=== PATIENT | male | born 1985 | race Caucasian/White ===

== ENCOUNTER 2018-04-19 11:24 | Emergency (ER) | payer MEDICAID ==
[2018-04-19] MEDS ORDERED: Diphtheria,Pertussis(Acell),Tetanus Vaccine 0.5 ML Syringe IM ONE (11:31)
[2018-04-19] MEDS ORDERED: Sodium Chloride 0.9% 1,000 ML IV ONE (11:31)
[2018-04-19] MEDS ORDERED: Ondansetron 4 MG/2 ML SDV IVPUSH ONE (11:31)
--- NOTE | 2018-04-19 11:41 | EDM.PDOC ---
ED HPI GENERAL MEDICAL PROBLEM - General Chief Complaint: Trauma Stated Complaint: FALL Time Seen by Provider: 04/19/18 11:33 Source of Information: Reports: Patient History Limitations: Reports: No Limitations - History of Present Illness INITIAL COMMENTS - FREE TEXT/NARRATIVE: HISTORY AND PHYSICAL: Trauma alert was called upon patient arrival at 1126: Dr Ferrer was involved in the case History of present illness: Patient is a 32-year-old male who presents to the emergency room by private vehicle with concerns of a head laceration and generalized body pain. He states last evening he was drinking alcohol at a neighbor's house and remembers walking up the stairs to his apartment. He states he does not recall any events after that. He woke up in the middle of the night and had noticed a moderate amount of blood on his pillow and had a large hematoma to the right side of his scalp. He states he got up and showered. This morning he proceeded to the emergency room as he now has head, neck and thoracic back pain. He is ambulatory into the emergency room. Does have pain to the left knee, left index finger and left foot. A trauma alert was called due to unknown mechanism of injury. Patient is alert and oriented. Review of systems: As per history of present illness and below otherwise all systems reviewed and negative. Past medical history: As per history of present illness and as reviewed below otherwise noncontributory. Surgical history: As per history of present illness and as reviewed below otherwise noncontributory. Social history: No reported history of drug or alcohol abuse. Family history: As per history of present illness and as reviewed below otherwise noncontributory. Physical exam: General: Well-developed and well-nourished 32-year-old male. Alert and oriented. Nontoxic appearing and in no acute distress. HEENT: The hair along the right side of his scalp has dried blood (staff is currently cleaning area to view the area), soft tissue swelling and tenderness to the right side of scalp, behind right ear. Otherwise normocephalic, pupils equal and reactive bilaterally, negative for conjunctival pallor or scleral icterus, mucous membranes moist, throat clear, teeth and tongue intact, neck supple, nontender, trachea midline. No drooling or trismus noted. No meningeal signs Lungs: Clear to auscultation, breath sounds equal bilaterally, chest nontender. Heart: S1S2, regular rate and rhythm without overt murmur Abdomen: Soft, nondistended, nontender. Negative for masses or hepatosplenomegaly. Negative for costovertebral tenderness. Pelvis: Stable nontender. Genitourinary: Deferred. Rectal: Deferred. Skin: Abrasions noted to bilateral knees, soft tissue swelling noted to the left index finger. Please see below for head laceration description. Extremities: Moves all extremities per self. Does have pain with palpation over the anterior surface of left knee and top of left foot. Pain with weightbearing of the left knee and left foot. Pain with flexion and extension of left index finger. Denies any numbness or tingling to his distal extremities. Strong pedal and radial pulses bilaterally. Capillary refill less than 3 seconds. He is negative for cords or calf pain. Neurovascular unremarkable. C-spine/Back: No pinpoint vertebral tenderness to the cervical spine. Mild tenderness to the upper/mid thoracic spine with palpation. No crepitus, step- offs or obvious deformities noted. No urinary or fecal incontinence. Denies any numbness or tingling to his distal extremities. Patient is ambulatory into the emergency room and hasn't even and steady gait. Neuro: Awake, alert, oriented. Cranial nerves II through XII unremarkable. Cerebellum unremarkable. Motor and sensory unremarkable throughout. Exam nonfocal. Notes: No acute intracranial abnormality. There is focal scalp swelling and hematoma adjacent to the right parietal calvarium, no fracture. CT of the cervical spine is within normal limits. C-collar was removed. CT of the chest, abdomen and pelvis are normal. X-ray of the left knee and foot show no evidence of fracture or dislocation. Finger xray shows nondisplaced volar plate avulsion fracture at the base of the second middle phalanx. Fiberglass splint was applied to the end of the fingertips over the palmar surface beyond the wrist. She secured with an Cale wrap. Due to the moderate amount of dried blood in the patient's hair over the lacerated area, staff having difficulty cleaning. He declined the need to anesthetize the area. Chlorahexedine, warm water and commerical shower cap were used to cleanse the area. 5 cm x 2.5 cm "T" shaped laceration to left side of scalp. There appears to be an avulsed area of skin in the center of the T, approx 1.25cm in width. 1% lidocaine was used to anesthetize the area in order to cleanse the dried blood. Chlorahexadine and wound wash was used to clean and irrigate the area. Sterile and customary procedures were used. In total #6 gagandeep were placed. 2 gagandeep to the left side of the T, 2 gagandeep to the right side of the T, and 2 at the base. 5-0 nylon was used to approximate the avulsed area at the center of the "T "- #3 sutures. Patient tolerated procedure well. Wound care was reviewed and signs and symptoms that would prompt him to return to the emergency room for need of antibiotic was discussed. Patient voices understanding and is agreeable to plan of care. He denies any further questions or concerns at this time. Diagnostics: CBC, CMP, INR, UA, EKG, CT head/C-spine without contrast, CT chest abdomen and pelvis with contrast Therapeutics: Wound Care, IV fluid, Zofran,Tdap, [place], Posterior fiberglass splint Prescription: [place] (#15) Impression: Nondisplaced volar plate fracture, left 2nd phalanx Laceration Head Injury Back Pain Trauma Plan: 1. Please rest and ice the painful areas. 2. Tylenol and/or ibuprofen as needed for pain management. [place] for moderate to severe pain. Medication may cause drowsiness so do not take it will driving her needing to be functioning outside of the house. 3. The head wound clean and dry. Continue to monitor for signs of infection. You are able to wash her hair gently, as needed. [place] and stitches to be removed in approximately 10 days. 4. Please follow-up with the orthopedic or hand surgeon for follow-up of your finger fracture. Call their office on Saturday to set up an appointment for later next week. Please keep the splint on and intact for protective and comfort purposes. 5. Return to the ED as needed and as discussed. Definitive disposition and diagnosis as appropriate pending reevaluation and review of above. Right Head Pain Score (Numeric/FACES): 8 - Related Data Allergies Allergy/AdvReac Type Severity Reaction Status Date / Time No Known Allergies Allergy Verified 04/19/18 11:35 Home Meds: Home Meds Acetaminophen/HYDROcodone [[place] 325-5 MG] 1 tab PO Q4H PRN #15 tablet 04/19/18 [Rx] Glatiramer Acetate [Copaxone] 40 mg PO 04/19/18 [History] Review of Systems - Review of Systems Review Of Systems: ROS reveals no pertinent complaints other than HPI. ED EXAM, GENERAL - Physical Exam Exam: See Below (See dictation) ED TRAUMA PROCEDURES - Laceration/Wound Repair Scalp Lac/Wound Length In cm: 7.5 (5 x 2.5) Appearance: Subcutaneous, Irregular, Mildly Contaminated Distal NVT: Neuro & Vascular Intact Anesthetic Type: Local Local Anesthesia - Lidocaine (Xylocaine): 1% Plain Local Anesthetic Volume: 5cc Skin Prep: Chlorhexidine (Hibiciens), Saline, Other (Wound wash to irrigate) Saline Irrigation (cc's): 50 Exploration/Debridement/Repair: Wound Explored, In a Bloodless Field, No Foreign Material Found Closed With: Sutures, Gagandeep Suture Size: other (5-0) # of Sutures: 3 Suture Type: Nylon # of Sutures: 6 Drain Placement: No Sterile Dressing Applied: Provider Tetanus Status Addressed: Yes Complications: No Course - Vital Signs Last Recorded V/S: Last Vital Signs Temp 98.4 F 04/19/18 15:17 Pulse 85 04/19/18 15:17 Resp 18 04/19/18 15:17 BP 133/79 04/19/18 15:17 Pulse Ox 96 04/19/18 15:17 - Orders/Labs/Meds Orders: Active Orders 24 hr Category Date Time Status Communication Order [RC] STAT Care 04/19/18 11:44 Active EKG Documentation Completion [RC] STAT Care 04/19/18 11:32 Active Vaccines to be Administered [RC] PER UNIT ROUTINE Care 04/19/18 11:32 Active Abdomen Pelvis w Cont [CT] Stat Exams 04/19/18 11:47 Ordered Cervical Spine wo Cont [CT] Stat Exams 04/19/18 11:31 Ordered Chest w Cont [CT] Stat Exams 04/19/18 11:31 Ordered Fingers Second Digit Lt F1 [CR] Stat Exams 04/19/18 11:31 Taken Foot 2V Lt [CR] Stat Exams 04/19/18 11:31 Taken Head wo Cont [CT] Stat Exams 04/19/18 11:31 Ordered Knee 3V Lt [CR] Stat Exams 04/19/18 11:31 Taken DME for Discharge [COMM] Stat Oth 04/19/18 14:51 Ordered Labs: Laboratory Tests 04/19/18 04/19/18 04/19/18 Range/Units 11:35 11:35 11:35 WBC 8.83 (4.0-11.0) K/uL RBC 4.45 L (4.50-5.90) M/uL Hgb 15.1 (13.0-17.0) g/dL Hct 44.3 (38.0-50.0) % MCV 99.6 H (80.0-98.0) fL MCH 33.9 H (27.0-32.0) pg MCHC 34.1 (31.0-37.0) g/dL RDW Std Deviation 49.6 (28.0-62.0) fl RDW Coeff of Gagandeep 14 (11.0-15.0) % Plt Count 242 (150-400) K/uL MPV 9.30 (7.40-12.00) fL Neut % (Auto) 72.3 (48.0-80.0) % Lymph % (Auto) 17.1 (16.0-40.0) % [place] % (Auto) 9.5 (0.0-15.0) % Eos % (Auto) 0.9 (0.0-7.0) % Baso % (Auto) 0.2 (0.0-1.5) % Neut # (Auto) 6.4 H (1.4-5.7) K/uL Lymph # (Auto) 1.5 (0.6-2.4) K/uL [place] # (Auto) 0.8 (0.0-0.8) K/uL Eos # (Auto) 0.1 (0.0-0.7) K/uL Baso # (Auto) 0.0 (0.0-0.1) K/uL Nucleated RBC % 0.0 /100WBC Nucleated RBCs # 0 K/uL INR 0.96 Sodium 139 (136-148) mmol/L Potassium 4.1 (3.5-5.1) mmol/L Chloride 105 (98-107) mmol/L Carbon Dioxide 23.2 (21.0-32.0) mmol/L BUN 8 (7.0-18.0) mg/dL Creatinine 0.9 (0.8-1.3) mg/dL Est Cr Clr Drug Dosing 134.82 mL/min Estimated GFR (MDRD) > 60.0 ml/min Glucose 92 (74-106) mg/dL Calcium 9.0 (8.5-10.1) mg/dL Total Bilirubin 0.5 (0.2-1.0) mg/dL AST 27 (15-37) IU/L ALT 35 (14-63) IU/L Alkaline Phosphatase 64 (46-116) U/L Total Protein 7.9 (6.4-8.2) g/dL Albumin 4.2 (3.4-5.0) g/dL Globulin 3.7 H (2.0-3.5) g/dL Albumin/Globulin Ratio 1.1 L (1.3-2.8) Urine Color Urine Appearance Urine pH (5.0-8.0) Ur Specific [place] (1.001-1.035) Urine Protein (NEGATIVE) mg/dL Urine Glucose (UA) (NEGATIVE) mg/dL Urine Ketones (NEGATIVE) mg/dL Urine Occult Blood (NEGATIVE) Urine Nitrite (NEGATIVE) Urine Bilirubin (NEGATIVE) Urine Urobilinogen (<2.0) EU/dL Ur Leukocyte Esterase (NEGATIVE) Urine RBC (0-2/HPF) Urine WBC (0-5/HPF) Ur Epithelial Cells (NONE-FEW) Urine Bacteria (NEGATIVE) 04/19/18 Range/Units 12:43 WBC (4.0-11.0) K/uL RBC (4.50-5.90) M/uL Hgb (13.0-17.0) g/dL Hct (38.0-50.0) % MCV (80.0-98.0) fL MCH (27.0-32.0) pg MCHC (31.0-37.0) g/dL RDW Std Deviation (28.0-62.0) fl RDW Coeff of Gagandeep (11.0-15.0) % Plt Count (150-400) K/uL MPV (7.40-12.00) fL Neut % (Auto) (48.0-80.0) % Lymph % (Auto) (16.0-40.0) % [place] % (Auto) (0.0-15.0) % Eos % (Auto) (0.0-7.0) % Baso % (Auto) (0.0-1.5) % Neut # (Auto) (1.4-5.7) K/uL Lymph # (Auto) (0.6-2.4) K/uL [place] # (Auto) (0.0-0.8) K/uL Eos # (Auto) (0.0-0.7) K/uL Baso # (Auto) (0.0-0.1) K/uL Nucleated RBC % /100WBC Nucleated RBCs # K/uL INR Sodium (136-148) mmol/L Potassium (3.5-5.1) mmol/L Chloride (98-107) mmol/L Carbon Dioxide (21.0-32.0) mmol/L BUN (7.0-18.0) mg/dL Creatinine (0.8-1.3) mg/dL Est Cr Clr Drug Dosing mL/min Estimated GFR (MDRD) ml/min Glucose (74-106) mg/dL Calcium (8.5-10.1) mg/dL Total Bilirubin (0.2-1.0) mg/dL AST (15-37) IU/L ALT (14-63) IU/L Alkaline Phosphatase (46-116) U/L Total Protein (6.4-8.2) g/dL Albumin (3.4-5.0) g/dL Globulin (2.0-3.5) g/dL Albumin/Globulin Ratio (1.3-2.8) Urine Color YELLOW Urine Appearance CLEAR Urine pH 5.5 (5.0-8.0) Ur Specific [place] <= 1.005 (1.001-1.035) Urine Protein NEGATIVE (NEGATIVE) mg/dL Urine Glucose (UA) NEGATIVE (NEGATIVE) mg/dL Urine Ketones NEGATIVE (NEGATIVE) mg/dL Urine Occult Blood NEGATIVE (NEGATIVE) Urine Nitrite NEGATIVE (NEGATIVE) Urine Bilirubin NEGATIVE (NEGATIVE) Urine Urobilinogen 0.2 (<2.0) EU/dL Ur Leukocyte Esterase NEGATIVE (NEGATIVE) Urine RBC 0-1 (0-2/HPF) Urine WBC 0-1 (0-5/HPF) Ur Epithelial Cells RARE (NONE-FEW) Urine Bacteria RARE (NEGATIVE) Meds: Medications Discontinued Medications Generic Name Dose Route Start Last Admin Trade Name Freq PRN Reason Stop Dose Admin Diphtheria/Tetanus/Acell Pertussis 0.5 ml 04/19/18 11:31 04/19/18 12:46 Adacel IM 04/19/18 11:32 0.5 ml .ONCE ONE Administration Sodium Chloride 1,000 mls @ 999 mls/hr 04/19/18 11:31 04/19/18 12:46 Normal Saline IV 04/19/18 12:31 999 mls/hr STAT ONE Administration Iopamidol 100 ml 04/19/18 16:01 04/19/18 16:02 Isovue Multipack-370 (76%) IVPUSH 04/19/18 16:02 100 ml ONETIME STA Administration Lidocaine HCl 10 ml 04/19/18 13:10 04/19/18 13:47 Xylocaine-Mpf 1% INJECT 04/19/18 13:11 10 ml ONETIME ONE Administration Morphine Sulfate 2 mg 04/19/18 12:56 04/19/18 12:59 Morphine IVPUSH 04/19/18 12:57 2 mg ONETIME ONE Administration Ondansetron HCl 4 mg 04/19/18 11:31 04/19/18 11:46 Zofran IVPUSH 04/19/18 11:32 4 mg ONETIME ONE Administration Departure - Departure Time of Disposition: 10:16 Disposition: Home, Self-Care 01 Clinical Impression: Head injury, Back pain, Fracture of phalanx of finger, Laceration, Trauma - Discharge Information Prescriptions: Acetaminophen/HYDROcodone [Defiance 325-5 MG] 1 tab PO Q4H PRN #15 tablet PRN Reason: Pain Instructions: Finger Fracture, Rnql-ob-Luoe, Head Injury, Adult, [id number]-Farw Forms: ED Department Discharge Additional Instructions: The following information is given to patients seen in the emergency department who are being discharged to home. This information is to outline your options for follow-up care. We provide all patients seen in our emergency department with a follow-up referral. The need for follow-up, as well as the timing and circumstances, are variable depending upon the specifics of your emergency department visit. If you don't have a primary care physician on staff, we will provide you with a referral. We always advise you to contact your personal physician following an emergency department visit to inform them of the circumstance of the visit and for follow-up with them and/or the need for any referrals to a consulting specialist. The emergency department will also refer you to a specialist when appropriate. This referral assures that you have the opportunity for follow-up care with a specialist. All of these measure are taken in an effort to provide you with optimal care, which includes your follow-up. Under all circumstances we always encourage you to contact your private physician who remains a resource for coordinating your care. When calling for follow-up care, please make the office aware that this follow-up is from your recent emergency room visit. If for any reason you are refused follow-up, please contact the [facility] Emergency Department at and asked to speak to the emergency department charge nurse. [facility] [address] [place] [address] [facility] - [facility] [address], [place] [address] [facility] - Plastic Surgery [address] [address] 1. Please rest and ice the painful areas. 2. Tylenol and/or ibuprofen as needed for pain management. [place] for moderate to severe pain. Medication may cause drowsiness so do not take it will driving her needing to be functioning outside of the house. 3. The head wound clean and dry. Continue to monitor for signs of infection. You are able to wash her hair gently, as needed. [place] and stitches to be removed in approximately 10 days. 4. Please follow-up with the orthopedic or hand surgeon for follow-up of your finger fracture. Call their office on Saturday to set up an appointment for later next week. Please keep the splint on and intact for protective and comfort purposes. 5. Return to the ED as needed and as discussed. - My Orders Last 24 Hours: My Active Orders 04/19/18 11:31 Cervical Spine wo Cont [CT] Stat Chest w Cont [CT] Stat Fingers Second Digit Lt F1 [CR] Stat Foot 2V Lt [CR] Stat Head wo Cont [CT] Stat Knee 3V Lt [CR] Stat 04/19/18 11:32 EKG Documentation Completion [RC] STAT Vaccines to be Administered [RC] PER UNIT ROUTINE 04/19/18 11:44 Communication Order [RC] STAT 04/19/18 11:47 Abdomen Pelvis w Cont [CT] Stat 04/19/18 14:51 DME for Discharge [COMM] Stat - Assessment/Plan Last 24 Hours: My Active Orders 04/19/18 11:31 Cervical Spine wo Cont [CT] Stat Chest w Cont [CT] Stat Fingers Second Digit Lt F1 [CR] Stat Foot 2V Lt [CR] Stat Head wo Cont [CT] Stat Knee 3V Lt [CR] Stat 04/19/18 11:32 EKG Documentation Completion [RC] STAT Vaccines to be Administered [RC] PER UNIT ROUTINE 04/19/18 11:44 Communication Order [RC] STAT 04/19/18 11:47 Abdomen Pelvis w Cont [CT] Stat 04/19/18 14:51 DME for Discharge [COMM] Stat
[2018-04-19 12:08] LABS: CHLORIDE,CL 105 mmol/L (98-107); SODIUM,NA 139 mmol/L (136-148)
[2018-04-19] MEDS ORDERED: Morphine 2 MG/ML Syringe IVPUSH ONE (12:56)
[2018-04-19] MEDS ORDERED: Iopamidol 755 MG/ML 200 ML Multipack Bottle IVPUSH STA (16:01)
--- NOTE | 2018-04-21 10:19 | CT ---
EXAM DATE: 04/19/18 PATIENT'S AGE: 32 Patient: HEDY LOPEZ Facility: [place], [place] Site . Site : 1985 Study: CT Head [id number]/15/2018 12:20:11 PM Ordering Physician: Doctor Feliz Final Report: INDICATION: Trauma. COMPARISON: None. TECHNIQUE: Axial CT of the head without contrast. FINDINGS: Focal scalp swelling and hematoma adjacent to the right parietal calvarium. No underlying fracture or extra-axial hematoma. No acute intracranial hemorrhage, focal edema, mass effect, or fracture. No midline shift. No abnormal ventricular dilatation. Normal calvarium and skull base. The visualized paranasal sinuses and mastoid air cells are clear. Visualized orbits are unremarkable. IMPRESSION: 1. No acute intracranial abnormality 2. Focal scalp swelling and hematoma adjacent to the right parietal calvarium. No underlying fracture Please note that all CT scans at this facility use dose modulation, iterative reconstruction, and/or weight-based dosing when appropriate to reduce radiation dose to as low as reasonably achievable. Dictated by Jeremy Watson MD @ Apr 19 2018 12:28PM (Electronic Signature) Report Signed by Proxy. [facility]
--- NOTE | 2018-04-21 10:20 | CT ---
EXAM DATE: 04/19/18 PATIENT'S AGE: 32 Patient: HEDY LOPEZ Facility: [place], [place] Site . Site : 1985 Study: CT Spine Cervical [id number]/15/2018 12:20:34 PM Ordering Physician: Doctor Feliz Final Report: INDICATION: Trauma. COMPARISON: None. TECHNIQUE: Noncontrast CT cervical spine. Coronal and sagittal reformat images. FINDINGS: Cervical collar in place. Associated straightening of the normal cervical lordosis. Normal vertebral body facet alignment. No fractures. No vertebral body loss of height. No spondylolisthesis. No prevertebral soft tissue swelling. No significant spondylotic changes. At C5-6, posterior disc bulge with no spinal canal or neural foramina narrowing. No spinal canal or neural foraminal narrowing at remaining levels of the cervical spine. Normal articulation at the bilateral temporomandibular joints. Lung apices are clear. IMPRESSION: 1. Cervical collar is in place. Associated straightening of the normal cervical lordosis. 2. No fractures. No vertebral body loss of height. 3. Normal alignment. 4. No prevertebral soft tissue swelling 5. No severe spinal canal or neural foraminal narrowing at all levels Please note that all CT scans at this facility use dose modulation, iterative reconstruction, and/or weight-based dosing when appropriate to reduce radiation dose to as low as reasonably achievable. Dictated by Jeremy Watson MD @ Apr 19 2018 12:33PM (Electronic Signature) Report Signed by Proxy. [facility]
--- NOTE | 2018-04-21 10:22 | CT ---
EXAM DATE: 04/19/18 PATIENT'S AGE: 32 Patient: HEDY LOPEZ Facility: [place], [place] Site . Site : 1985 Study: CT Chest [id number]/15/2018 12:26:43 PM Ordering Physician: Doctor Feliz Final Report: INDICATION: unknown trauma HISTORY: Unknown trauma. COMPARISON: None. TECHNIQUE: CT of the chest. 100 cc of Isovue-370 IV. Coronal/sagittal reconstruction images. FINDINGS: Bilateral gynecomastia. The inferior thyroid gland is symmetric. There are nonenlarged lymph nodes within the axilla, mediastinum, and pulmonary dusty. There is no pleural or pericardial effusion. Normal caliber thoracic aorta. Normal caliber main pulmonary artery. The lung windows demonstrate no endobronchial mass. No bronchiectasis. No architectural distortion. There is dependent atelectasis. There is no evidence on CT for pulmonary laceration. Evaluation the upper abdomen demonstrates no adrenal mass. Included segments of the liver, gallbladder, spleen, and pancreas are normal. No upper abdominal lymphadenopathy. Symmetric nephrograms. The bone windows demonstrate no displaced rib fracture. On sagittal reconstruction images, the vertebral body heights are maintained. The sternum is intact. IMPRESSION: 1. No pulmonary laceration or pneumothorax. 2. No intramural/mediastinal hematoma. 3. No hemoperitoneum or visceral organ injury identified in the upper abdomen. Dictated by Temo Faye MD @ 04/19/2018 12:52:32 PM Please note that all CT scans at this facility use dose modulation, iterative reconstruction, and/or weight-based dosing when appropriate to reduce radiation dose to as low as reasonably achievable. Dictated by: Temo Faye MD @ 04/19/2018 12:52:43 (Electronic Signature) Report Signed by Proxy. [facility]
--- NOTE | 2018-04-21 10:25 | CR ---
EXAM DATE: 04/19/18 PATIENT'S AGE: 32 Patient: HEDY LOPEZ Facility: [place], [place] Site . Site : 1985 Study: XRay Extremity Left foot [id number]/[id number]/2018 12:32:52 PM Ordering Physician: Doctor Feliz Final Report: INDICATION: Trauma with pain, fall. TECHNIQUE: Two-view left foot COMPARISON: None FINDINGS: No left foot fracture, malalignment or acute osseous abnormality is seen. IMPRESSION: Negative. Dictated by Chico Lam MD @ Apr 19 2018 12:55PM (Electronic Signature) Report Signed by Proxy. [facility]
--- NOTE | 2018-04-21 10:26 | CR ---
EXAM DATE: 04/19/18 PATIENT'S AGE: 32 Patient: HEDY LOPEZ Facility: [place], [place] Site . Site : 1985 Study: XRay Knee Left [id number]/15/2018 12:33:10 PM Ordering Physician: Doctor Feliz Final Report: INDICATION: Pain after fall. TECHNIQUE: Two views left knee. IMPRESSION: Negative. Dictated by Thomas Avina MD @ Apr 19 2018 1:02PM (Electronic Signature) Report Signed by Proxy. [facility]
--- NOTE | 2018-04-21 10:27 | CT ---
EXAM DATE: 04/19/18 PATIENT'S AGE: 32 Patient: HEDY LOPEZ Facility: [place], [place] Site . Site : 1985 Study: CT Abdomen/Pelvis [id number]/15/2018 12:59:58 PM Ordering Physician: Doctor Feliz Final Report: INDICATION: Trauma. TECHNIQUE: CT abdomen and pelvis acquired with 100 mL Isovue 370 IV contrast. COMPARISON: None FINDINGS: Lower chest: Unremarkable. Liver: Mild low-attenuation steatosis diffusely. Spleen: Unremarkable. Pancreas: Unremarkable. Gallbladder and bile ducts: Unremarkable. Kidneys: Unremarkable. Adrenal glands: Unremarkable. GI tract: Unremarkable. Appendix is normal. Vascular structures: Negative. No sign of aneurysm. Lymph nodes: Unremarkable. Miscellaneous: Unremarkable. No free air or significant free fluid. Pelvic Organs: Unremarkable. Bones: Unremarkable for age. IMPRESSION: No acute or traumatic findings. Mild steatosis of the liver. Please note that all CT scans at this facility use dose modulation, iterative reconstruction, and/or weight-based dosing when appropriate to reduce radiation dose to as low as reasonably achievable. Dictated by Thomas Avina MD @ Apr 19 2018 1:19PM (Electronic Signature) Report Signed by Proxy. [facility]
--- NOTE | 2018-04-21 10:33 | CR ---
EXAM DATE: 04/19/18 PATIENT'S AGE: 32 Patient: HEDY LOPEZ Facility: [place], [place] Site . Site : 1985 Study: XRay Extremity Left 2nd digit [id number]/15/2018 1:33:37 PM Ordering Physician: Doctor Feliz Final Report: INDICATION: Fall TECHNIQUE: Three views of the left 2nd finger FINDINGS: Soft tissue swelling. Normal alignment. Nondisplaced volar plate avulsion fracture at the base of the 2nd middle phalanx. Dictated by Christen Edwards MD @ Apr 19 2018 1:51PM (Electronic Signature) Report Signed by Proxy. MATILDE
== END 2018-04-19 15:17 | disposition home or self-care (01) ==
LOC: MW.ED 11:24
DX: S62.651A Nondisplaced fracture of middle phalanx of left index finger, initial encounter for closed fracture (principal); S01.01XA Laceration without foreign body of scalp, initial encounter; S09.90XA Unspecified injury of head, initial encounter; S80.212A Abrasion, left knee, initial encounter; S80.211A Abrasion, right knee, initial encounter; M54.9 Dorsalgia, unspecified; Z23 Encounter for immunization; X58.XXXA Exposure to other specified factors, initial encounter; Z79.899 Other long term (current) drug therapy
CPT/HCPCS: 12002; 36415; 70450; 71260; 72125; 73140; 73562; 73620; 74177; 80053; 81001; 85025; 85610; 90471; 90715; 93005; 96361; 96374; 96375; 99284; J2270; J2405; J7040; Q9967

== ENCOUNTER 2018-04-30 12:41 | Emergency (ER) | payer MEDICAID | END 2018-04-30 13:00 | disposition left against medical advice (07) | LOC: MW.ED 12:41 | DX: Z53.21 Procedure and treatment not carried out due to patient leaving prior to being seen by health care provider (principal) ==